=== PATIENT | male | born 1950 | race Caucasian/White ===

== ENCOUNTER 2017-10-22 14:51 | Inpatient (IN) ==
[2017-10-22 16:15] LABS: Basophils % 0.5 % (0.0-0.8); Eosinophils # 0.2 10*3/uL (0.0-0.87); Eosinophils % 1.8 % (0.00-10.9); Hematocrit 43.2 VOL% (42.0-52.0); Hemoglobin 13.9 GM/DL (14.0-18.0); Immature Granulocytes % 0.7 %; Immature Granulocytes Absolute 0.06 #; Lymphocytes # 1.3 10*3/uL (1.4-4.0); Lymphocytes % 16.2 % (21.2-54.2); Mean Corpuscular HGB Conc 32.2 GM/DL (32-36); Mean Corpuscular Hemoglobin 23 PG (27-34); Mean Corpuscular Volume 69.8 FL (87-102); Mean Platelet Volume 10.9 FL (9.6-12.0); Monocytes # 1.1 10*3/uL (0.11-0.8); Monocytes % 13.2 % (1.7-12.7); Neutrophils # 5.6 10*3/uL (1.4-7.4); Neutrophils % 67.6 % (38.7-73.9); Platelet Count 167 T/CUMM (130-400); Red Blood Count 6.19 MC/CUMM (3.8-5.5); Red Cell Distribution Width 15.5 % (9.3-17.3); White Blood Count 8.3 T/CUMM (4-12)
[2017-10-22 16:37] LABS: PT Patient Result 10.6 SECS
[2017-10-22 16:40] LABS: Apearance,Urine CLEAR (Clear); Bilirubin,Urine Negative (Negative); Blood, Urine Large mg/dL (Negative); Glucose,Urine (UA) >=500 mg/dL (Negative); Ketones,Urine Negative (Negative); Nitrite,Urine Negative (Negative); Protein,Urine 30 MG/DL; RBC,Urine 354 /HPF (0-4); Squamous Epithelial Cell,Urine Occasional /HPF (0-10); Urine Color Yellow (Yellow); Urine Specific Gravity 1.027 (1.001-1.035); Urine Urobilinogen < 2.0 EU/DL (0.2-1.0)
[2017-10-22 16:45] LABS: Albumin 3.8 G/DL (3.4-5.0); Bilirubin,Total 1.1 MG/DL (0.2-1.0); Calcium 8.8 MG/DL (8.5-10.1); Osmolality,Calculated 280.7 MOS/KG (273-304); Potassium 4.1 MMOL/L (3.5-5.1); Total Protein 8.3 G/DL (6.4-8.3); Troponin I Only 0.058 NG/ML (0.00-0.045)
[2017-10-22] MEDS ORDERED: ACETAMINOPHEN 325 MG TABLET PO PRN (17:36)
[2017-10-22 18:13] LABS: Barbiturates Screen,Urine Negative (Negative); Benzodiazepines Screen,Urine Negative (Negative); Cannabinoid Screen,Urine Negative (Negative); Opiate Screen,Urine Negative (Negative); Phencyclidine Screen,Urine Negative (Negative)
[2017-10-22 18:23] LABS: Risk Ratio 3.71; VLDL CHOLESTEROL 30.8 MG/DL
[2017-10-22] MEDS ORDERED: GLUCAGON 1 MG VIAL IM PRN (18:31)
[2017-10-22] MEDS ORDERED: DEXTROSE 50% 25 GM/50 ML VIAL IV PRN (18:31)
[2017-10-22] MEDS: ATORVASTATIN 40 MG TABLET PO SCH (21:57)
[2017-10-23 05:29] LABS: Basophils # 0.1 10*3/uL (0.0-0.2); Basophils % 0.6 % (0.0-0.8); Eosinophils # 0.2 10*3/uL (0.0-0.87); Eosinophils % 2.1 % (0.00-10.9); Hematocrit 42.5 VOL% (42.0-52.0); Hemoglobin 13.9 GM/DL (14.0-18.0); Immature Granulocytes % 0.6 %; Immature Granulocytes Absolute 0.05 #; Lymphocytes # 1.4 10*3/uL (1.4-4.0); Mean Corpuscular HGB Conc 32.7 GM/DL (32-36); Mean Corpuscular Hemoglobin 23 PG (27-34); Mean Corpuscular Volume 69.8 FL (87-102); Mean Platelet Volume 10.8 FL (9.6-12.0); Monocytes # 1.1 10*3/uL (0.11-0.8); Monocytes % 12.6 % (1.7-12.7); Neutrophils # 6.1 10*3/uL (1.4-7.4); Neutrophils % 68.1 % (38.7-73.9); Platelet Count 174 T/CUMM (130-400); Red Blood Count 6.09 MC/CUMM (3.8-5.5); Red Cell Distribution Width 15.9 % (9.3-17.3)
[2017-10-23 06:20] LABS: Calcium 9.3 MG/DL (8.5-10.1); Potassium 4.1 MMOL/L (3.5-5.1); Thyroid Stimulating Hormone 2.5 uIU/ml (0.358-3.74)
[2017-10-23] MEDS: SODIUM CHLORIDE 0.9% 1,000 ML IV SCH ×2 (07:02→18:27)
[2017-10-23] MEDS ORDERED: INSULIN NPH/REGULAR 70/30 100 UNIT/ML SUBCUT SCH (09:00)
[2017-10-23] MEDS ORDERED: ASPIRIN EC 81 MG TABLET PO SCH (09:00)
[2017-10-23] MEDS: INSULIN LISPRO 100 UNIT/ML SUBCUT SCH ×3 (10:50→16:46)
[2017-10-23] MEDS: PANTOPRAZOLE 40 MG TABLET PO SCH (10:56)
[2017-10-23] MEDS ORDERED: INSULIN LISPRO 100 UNIT/ML SUBCUT SCH (11:30)
[2017-10-23] MEDS ORDERED: amLODIPine 5 MG TABLET PO SCH (21:00)
[2017-10-23] MEDS ORDERED: ATORVASTATIN 20 MG TABLET PO SCH (21:00)
[2017-10-23] MEDS ORDERED: DIPYRIDAMOLE/ASPIRIN 200-25 MG CAPSULE PO SCH (21:00)
[2017-10-23] MEDS: APIXABAN 2.5 MG TABLET PO SCH (21:26)
[2017-10-23] MEDS: ATORVASTATIN 40 MG TABLET PO SCH (21:26)
[2017-10-23] MEDS: INSULIN REGULAR 100 UNIT/ML SUBCUT SCH (21:26)
[2017-10-23] MEDS: CARVEDILOL 12.5 MG TABLET PO SCH (21:27)
[2017-10-24 05:05] LABS: Basophils # 0.1 10*3/uL (0.0-0.2); Basophils % 0.6 % (0.0-0.8); Eosinophils # 0.3 10*3/uL (0.0-0.87); Eosinophils % 2.9 % (0.00-10.9); Hematocrit 38.8 VOL% (42.0-52.0); Hemoglobin 12.7 GM/DL (14.0-18.0); Immature Granulocytes % 0.8 %; Immature Granulocytes Absolute 0.07 #; Lymphocytes % 22.1 % (21.2-54.2); Mean Corpuscular HGB Conc 32.7 GM/DL (32-36); Mean Corpuscular Hemoglobin 23 PG (27-34); Mean Corpuscular Volume 68.7 FL (87-102); Monocytes # 1.1 10*3/uL (0.11-0.8); Monocytes % 12.6 % (1.7-12.7); Neutrophils # 5.5 10*3/uL (1.4-7.4); Platelet Count 176 T/CUMM (130-400); Red Blood Count 5.65 MC/CUMM (3.8-5.5); Red Cell Distribution Width 14.9 % (9.3-17.3)
[2017-10-24 05:34] LABS: Calcium 8.3 MG/DL (8.5-10.1); Osmolality,Calculated 277.4 MOS/KG (273-304)
[2017-10-24] MEDS ORDERED: INSULIN NPH/REGULAR 70/30 100 UNIT/ML SUBCUT SCH ×2 (07:30→16:30)
[2017-10-24] MEDS: INSULIN REGULAR 100 UNIT/ML SUBCUT SCH ×2 (07:53→14:31)
[2017-10-24] MEDS ORDERED: FUROSEMIDE 20 MG TABLET PO SCH (09:00)
[2017-10-24] MEDS ORDERED: THYROID 60 MG TABLET PO SCH (09:00)
[2017-10-24 12:20] VITALS: BP 176/91
[2017-10-24] MEDS ORDERED: SODIUM CHLORIDE 0.9% 1,000 ML IV SCH (13:00)
[2017-10-24] MEDS ORDERED: MIDAZOLAM 10 MG/2 ML VIAL ONE (13:01)
[2017-10-24] MEDS ORDERED: MEPERIDINE 25 MG/1 ML VIAL ONE (13:01)
[2017-10-24] MEDS: APIXABAN 2.5 MG TABLET PO SCH (14:39)
[2017-10-24] MEDS: PANTOPRAZOLE 40 MG TABLET PO SCH (14:39)
[2017-10-24] MEDS: CARVEDILOL 12.5 MG TABLET PO SCH (14:39)
== END 2017-10-24 15:45 | DRG 65 ==
LOC: N.ED 14:51 → N.EDINP 16:56 → N.TELES 18:05
PROVIDERS: ADMIT Internal Medicine; ATTEND Internal Medicine

== ENCOUNTER 2018-04-20 19:52 | Observation (INO) ==
[2018-04-20] MEDS ORDERED: DEXTROSE 50% 25 GM/50 ML SYRINGE IV ONE ×2 (19:58→22:15)
[2018-04-20 20:44] LABS: Basophils # 0.1 10*3/uL (0.0-0.2); Basophils % 0.4 % (0.0-0.8); Eosinophils # 1.2 10*3/uL (0.0-0.87); Eosinophils % 10.3 % (0.00-10.9); Hematocrit 41.1 VOL% (42.0-52.0); Hemoglobin 13.2 GM/DL (14.0-18.0); Immature Granulocytes % 2.2 %; Immature Granulocytes Absolute 0.25 #; Lymphocytes # 1.8 10*3/uL (1.4-4.0); Lymphocytes % 16.3 % (21.2-54.2); Mean Corpuscular HGB Conc 32.1 GM/DL (32-36); Mean Corpuscular Hemoglobin 22 PG (27-34); Mean Corpuscular Volume 69.4 FL (87-102); Mean Platelet Volume 10.9 FL (9.6-12.0); Monocytes # 1.1 10*3/uL (0.11-0.8); Monocytes % 9.9 % (1.7-12.7); Neutrophils # 6.8 10*3/uL (1.4-7.4); Neutrophils % 60.9 % (38.7-73.9); Platelet Count 226 T/CUMM (130-400); Red Blood Count 5.92 MC/CUMM (3.8-5.5); Red Cell Distribution Width 15.9 % (9.3-17.3); White Blood Count 11.2 T/CUMM (4-12)
[2018-04-20 20:52] LABS: Total Cells Counted 0
[2018-04-20 21:03] LABS: Albumin 3.6 G/DL (3.4-5.0); Bilirubin,Total 0.9 MG/DL (0.2-1.0); Calcium 9.2 MG/DL (8.5-10.1); Potassium 3.4 MMOL/L (3.5-5.1); Total Protein 7.3 G/DL (6.4-8.3)
[2018-04-20 21:19] LABS: Apearance,Urine Slightly Hazy (Clear); Bilirubin,Urine Negative (Negative); Blood, Urine Large mg/dL (Negative); Glucose,Urine (UA) >=500 mg/dL (Negative); Hyaline Casts,Urine 1 /LPF (0-3); Ketones,Urine Negative (Negative); Mucus,Urine Occasional /LPF (Occasional); Nitrite,Urine Negative (Negative); Protein,Urine 100 MG/DL; RBC,Urine 443 /HPF (0-4); Squamous Epithelial Cell,Urine Occasional /HPF (0-10); Urine Color Yellow (Yellow); Urine Specific Gravity 1.017 (1.001-1.035); Urine Urobilinogen < 2.0 EU/DL (0.2-1.0); WBC,Urine 1 /HPF (0-6)
[2018-04-20] MEDS ORDERED: DEXTROSE 50% 25 GM/50 ML VIAL IV STA (22:15)
[2018-04-20] MEDS ORDERED: DEXTROSE 10% 1,000 ML IV SCH ×2 (22:15→23:21)
[2018-04-20] MEDS ORDERED: DEXTROSE 10% 250 ML IV ONE (22:19)
[2018-04-20] MEDS ORDERED: ONDANSETRON 4 MG/2 ML VIAL IV PRN (23:21)
[2018-04-20] MEDS ORDERED: ACETAMINOPHEN 325 MG TABLET PO PRN (23:21)
[2018-04-20] MEDS ORDERED: GLUCAGON 1 MG VIAL IM PRN (23:21)
[2018-04-20] MEDS ORDERED: DEXTROSE 50% 25 GM/50 ML VIAL IV PRN (23:21)
[2018-04-21] MEDS ORDERED: DEXTROSE 10% 1,000 ML IV SCH (00:30)
[2018-04-21 03:21] LABS: Basophils # 0.1 10*3/uL (0.0-0.2); Basophils % 0.6 % (0.0-0.8); Eosinophils # 1.2 10*3/uL (0.0-0.87); Eosinophils % 9.1 % (0.00-10.9); Hematocrit 43.8 VOL% (42.0-52.0); Hemoglobin 13.6 GM/DL (14.0-18.0); Immature Granulocytes % 1.5 %; Lymphocytes # 1.6 10*3/uL (1.4-4.0); Lymphocytes % 12.2 % (21.2-54.2); Mean Corpuscular HGB Conc 31.1 GM/DL (32-36); Mean Corpuscular Hemoglobin 22 PG (27-34); Mean Corpuscular Volume 70.8 FL (87-102); Mean Platelet Volume 10.9 FL (9.6-12.0); Monocytes # 1.2 10*3/uL (0.11-0.8); Monocytes % 9.1 % (1.7-12.7); Neutrophils # 9.1 10*3/uL (1.4-7.4); Neutrophils % 67.5 % (38.7-73.9); Platelet Count 222 T/CUMM (130-400); Red Blood Count 6.19 MC/CUMM (3.8-5.5); Red Cell Distribution Width 17.1 % (9.3-17.3); White Blood Count 13.5 T/CUMM (4-12)
[2018-04-21 03:39] LABS: Calcium 8.7 MG/DL (8.5-10.1); Osmolality,Calculated 278.1 MOS/KG (273-304); Potassium 3.6 MMOL/L (3.5-5.1)
[2018-04-21] MEDS: APIXABAN 2.5 MG TABLET PO SCH ×2 (08:51→21:43)
[2018-04-21] MEDS: THYROID 60 MG TABLET PO SCH (08:53)
[2018-04-21] MEDS: hydroCHLOROthiazide 25 MG TABLET PO SCH (08:53)
[2018-04-21] MEDS: CARVEDILOL 12.5 MG TABLET PO SCH ×2 (08:53→21:43)
[2018-04-21] MEDS: FUROSEMIDE 20 MG TABLET PO SCH (08:54)
[2018-04-21] MEDS ORDERED: NON-FORMULARY MEDICATION (Cyanocobalamin (Vitamin B-12) [Vitamin B-12] 500 MCG) SL SCH (09:00)
[2018-04-21] MEDS: INSULIN LISPRO 100 UNIT/ML SUBCUT SCH ×3 (11:07→18:52)
[2018-04-21] MEDS: BACITRACIN OINT 0.9 GM PACK TOP SCH (11:08)
[2018-04-21] MEDS: INSULIN NPH/REGULAR 70/30 100 UNIT/ML SUBCUT SCH (16:54)
[2018-04-21] MEDS ORDERED: amLODIPine 5 MG TABLET PO SCH (21:00)
[2018-04-21] MEDS ORDERED: ATORVASTATIN 40 MG TABLET PO SCH (21:00)
[2018-04-21] MEDS ORDERED: LISINOPRIL 20 MG TABLET PO SCH (21:00)
[2018-04-22] MEDS: INSULIN LISPRO 100 UNIT/ML SUBCUT SCH ×4 (00:48→10:42)
[2018-04-22 05:13] LABS: Calcium 8.7 MG/DL (8.5-10.1); Osmolality,Calculated 276.1 MOS/KG (273-304); Potassium 3.6 MMOL/L (3.5-5.1)
[2018-04-22 07:37] VITALS: BP 105/69
[2018-04-22] MEDS: APIXABAN 2.5 MG TABLET PO SCH (08:26)
[2018-04-22] MEDS: THYROID 60 MG TABLET PO SCH (08:26)
[2018-04-22] MEDS: FUROSEMIDE 20 MG TABLET PO SCH (08:27)
[2018-04-22] MEDS: CARVEDILOL 12.5 MG TABLET PO SCH (08:27)
[2018-04-22] MEDS: hydroCHLOROthiazide 25 MG TABLET PO SCH (08:27)
[2018-04-22] MEDS: BACITRACIN OINT 0.9 GM PACK TOP SCH (08:27)
[2018-04-22] MEDS: INSULIN NPH/REGULAR 70/30 100 UNIT/ML SUBCUT SCH (08:28)
== END 2018-04-22 11:05 | disposition home or self-care (01) ==
LOC: EDBD → EDUNIT# → N.ED 19:52 → N.EDINP 19:52 → SUATTDRO 22:24 → N.ICU 23:03 → N.2E 04-21 09:56
PROVIDERS: ADMIT Internal Medicine; ATTEND Internal Medicine